=== PATIENT | female | born 1990 | race Caucasian/White ===

== ENCOUNTER 2017-09-27 11:32 | Outpatient (CLI) | payer BC, MEDICAID ==
--- NOTE | 2017-09-27 12:40 | Non Stress Test Report ---
Non Stress Test Datetime Report Generated by CPN: 09/27/2017 12:40 DEMOGRAPHIC EGA NST: 40.5 INDICATION Indication for Study: Ordered by Provider MONITORING Monitor Explained: Monitor Explained; Test Explained; Patient Verbalized Understanding Time on Monitor: 09/27/2017 11:46 Time off Monitor: 09/27/2017 12:11 NST Duration: 25 NST INTERVENTIONS NST Interventions: PO Hydration; Reposition Patient Physician Notified NST: H.Joseph, CNM BABY A: [id number] BABY A Movement : Present Contraction Frequency : None FHR Baseline : 125 Accelerations : 15X15 Decelerations : None Variability : Moderate 6-25bpm NST Review: Meets Criteria for Reactive NST NST Review and Verified By : JOY CRAWFORD Results: Reactive NST REPORT Report Trigger: Send Report
== END 2017-09-27 12:15 | disposition home or self-care (01) ==
LOC: LC 11:32
PROVIDERS: ATTEND Obstetrics & Gynecology
PROC: 4A1HXCZ Monitoring of Products of Conception, Cardiac Rate, External Approach (ICD-10-PCS; principal; 2017-09-27)
DX: O48.0 Post-term pregnancy (principal); Z3A.40 40 weeks gestation of pregnancy
CPT/HCPCS: 59025

== ENCOUNTER 2017-09-28 06:28 | Inpatient (IN) | payer BC, MEDICAID ==
[2017-09-28 07:09] LABS: APPEARANCE,URINE SLIGHTLY-CLOUDY; BILIRUBIN,URINE NEGATIVE (NEGATIVE); COLOR,URINE YELLOW; GLUCOSE, URINE NEGATIVE (NEGATIVE); KETONES,URINE NEGATIVE (NEGATIVE); LEUKOCYTE ESTERASE,URINE NEGATIVE (NEGATIVE); NITRITE,URINE NEGATIVE (NEGATIVE); PROTEIN,URINE NEGATIVE (NEGATIVE); URINE SPECIFIC GRAVITY 1.025; UROBILINOGEN,URINE NEGATIVE mg/dL (<2.0)
[2017-09-28 07:32] LABS: ABSOLUTE LYMPHOCYTES (AUTO) 2.2 10^3/uL (0.5-4.7); ABSOLUTE MONOCYTES (AUTO) 0.8 10^3/uL (0.1-1.4); ABSOLUTE NEUT (AUTO) 6.3 10^3/uL (1.7-8.2); BASOPHILS % (AUTO) 0.2 % (0-2); EOSINOPHILS % (AUTO) 0.4 % (0-6); HEMATOCRIT 34.5 % (36.0-47.0); HEMOGLOBIN 11.4 g/dL (12.0-15.5); LYMPHOCYTES % (AUTO) 23.3 % (13-45); MEAN CORPUSCULAR HGB CONC 33.1 g/dL (32.0-36.0); MEAN CORPUSCULAR VOLUME 88 fl (80-97); MONOCYTES % (AUTO) 8.3 % (3-13); PLATELET COUNT 156 10^3/uL (150-450); RED BLOOD COUNT 3.93 10^6/uL (3.72-5.28); RED CELL DISTRIBUTION WIDTH 13.9 % (11.5-14.0); SEGMENTED NEUTROPHILS % (AUTO) 67.8 % (42-78); TOTAL CELLS COUNTED % (AUTO) 100 %; WHITE BLOOD COUNT 9.2 10^3/uL (4.0-10.5)
[2017-09-28 07:32] LABS: URINE AMPHETAMINES SCREEN NEGATIVE; URINE BARBITURATES SCREEN NEGATIVE; URINE BENZODIAZEPINES SCREEN NEGATIVE; URINE COCAINE SCREEN NEGATIVE; URINE MARIJUANA (THC) SCREEN NEGATIVE; URINE METHADONE SCREEN NEGATIVE; URINE PHENCYCLIDINE SCREEN NEGATIVE
[2017-09-28] MEDS ORDERED: RINGERS SOLUTION,LACTATED 300 ML IV ONE (07:50)
[2017-09-28] MEDS ORDERED: OXYTOCIN/NORMAL SALINE 20 UNIT/1,000 ML RTUINJ IV PRN ×2 (07:50→12:27)
[2017-09-28] MEDS ORDERED: RINGERS SOLUTION,LACTATED 1,000 ML IV PRN (07:50)
[2017-09-28] MEDS ORDERED: LIDOCAINE 1% INJ-PF (10 MG/ML) 30 ML SDV ONE (08:05)
[2017-09-28] MEDS ORDERED: OXYTOCIN/NORMAL SALINE 20 UNIT/1,000 ML RTUINJ ONE (08:05)
[2017-09-28] MEDS ORDERED: MISOPROSTOL 0.2 MG TABLET ONE (08:05)
--- NOTE | 2017-09-28 09:47 | L&D Progress Notes ---
PROGRESS NOTES Datetime Report Generated by CPN: 09/28/2017 09:47 PROGRESS NOTE Impression: Reassuring Heart Rate Plan: Continue Present Management; Induction Vital Signs : Reviewed; Within Normal Limits Comment: Cat 1 strip, irregular uc's Plan: ROM, ROM FETUS A FHR - Baseline: 120 Monitoring: External US Variability: Moderate 6-25bpm Accelerations: 15X15 Decelerations: None FHR Category: Category I SIGNATURE SIGNATURE: [id number] SIGNATURE: [id number] Assignment: Albert Bryan MD Signature: with User ID: [email or web address] : with User ID: [email or web address]
--- NOTE | 2017-09-28 11:57 | L&D Progress Notes ---
PROGRESS NOTES Datetime Report Generated by CPN: 09/28/2017 11:57 PROGRESS NOTE Comment: feeling alot of pressure and pain, VE, floppy rim, 0, -1, variables, uc's q 2 1/2 FETUS A : 40.6 FETUS C SIGNATURE: [id number];[id number] Assignment: Albert Bryan MD Signature: with User ID: [email or web address] : with User ID: [email or web address]
[2017-09-28] MEDS ORDERED: ACETAMINOPHEN WITH CODEINE #3 TABLET PO PRN ×2 (12:27)
[2017-09-28] MEDS ORDERED: METHYLERGONOVINE MALEATE INJ/PF 0.2 MG/1 ML AMPULE IM PRN (12:27)
[2017-09-28] MEDS ORDERED: MEASLES,MUMPS&RUBELLA VACC/PF 0.5 ML VIAL SUBCUT PRN (12:27)
[2017-09-28] MEDS ORDERED: DIBUCAINE 1% OINTMENT 28 GM TP PRN (12:27)
[2017-09-28] MEDS ORDERED: DIPH/PERTUSS(ACELL)/TETANUS VAC/PF 0.5 ML SYR (>=10YO) IM PRN (12:27)
[2017-09-28] MEDS ORDERED: BENZOCAINE/MENTHOL AEROSOL SPRAY 56 ML TOP PRN (12:27)
[2017-09-28] MEDS ORDERED: ZOLPIDEM TARTRATE 5 MG TABLET PO PRN (12:27)
[2017-09-28] MEDS ORDERED: IBUPROFEN 800 MG TABLET ONE (12:45)
--- NOTE | 2017-09-28 13:03 | Delivery Summary ---
Del Sum A-C Datetime Report Generated by CPN: 09/28/2017 13:02 DELIVERY PERSONNEL DELIVERY PERSONNEL: [id number] Delivery Doctor:: Betty Enamorado CNM Nurse Radioisotope Technician Certified:: Betty Enamorado CNM Labor and Delivery Nurse:: Sandra Brock RNshook machine operator Nurse:: NORM Sosa Medical Front Desk Coordinator/WEAPONS ENGINEER: [facility] Additional Personnel: : Rosa Irizarry RN MATERNAL INFORMATION Delivery Anesthesia: None Medications After Delivery: Pitocin Bolus-Please Comment; Pitocin Drip 20 Units/1000ml NSS Meds After Delivery Comment: Pitocin 20 units in 1 L NS, bolusing per order Estimated Blood Loss (ml): 400 Maternal Complications: None Provider Comments: viable male from OA to [facility], after delivery of head, contraction was over, poor maternal effort, shoulder dystocia dx, Mc Garcia, Suprapubic pressure, call for help, no lateral traction, no fundal pressure, rt ant shoulder aneflexed and delivery of after 1 min 26 seconds . Placed on mothers abd, crying, family at BS moving all extremeties, facial bruising Spont delivery of grossly nl intact placenta, 2 VC, EBL 400cc, vaginal laceration repaired with 2-0 chromic without difficulty, bleeding controlled Cytotec 1000 mcg via rectum, Massage and Pitocin Both remain in recovery in stable condition LABOR SUMMARY EDC: 09/22/2017 00:00 No. Babies in Womb: 1 Attempted: No Labor Anesthesia: None LABOR INFORMATION Reason for Induction: Post Dates Reason for Induction- Other: GDM Onset of Labor: 09/28/2017 10:45 Complete Dilatation: 09/28/2017 11:58 Oxytocin: Induction Group B Beta Strep: negative Antibiotics # of Doses: 0 Steroids Given: None Reason Steroids Not Administered: Not Applicable MEMBRANES Membranes Rupture Method: Spontaneous Rupture of Membranes: 09/28/2017 10:46 Length of Rupture (hr): 1.30 Amniotic Fluid Color: Clear Amniotic Fluid Amount: Small Amniotic Fluid Odor: Normal STAGES OF LABOR Stage 1 hr: 1 Stage 1 min: 13 Stage 2 hr: 0 Stage 2 min: 6 Stage 3 hr: 0 Stage 3 min: 5 Total Time in Labor hr: 1 Total Time in Labor min: 24 VAGINAL DELIVERY Episiotomy: None Laceration #1: Vaginal Laceration Extension #1: Second Degree Laceration Repair: Yes Laceration Repair Note: 2-0 chromic for vaginal repair without difficulty using 1% Xylocaine Sponge Count Correct: N/A Sharps Count Correct: N/A CSECTION DELIVERY Primary Indication: N/A Secondary Indication: N/A CSection Incidence: N/A Labor: N/A Elective: N/A CSection Incision: N/A BABY A INFORMATION Delivery Date/Time: 09/28/2017 12:04 Method of Delivery: Vaginal Born in Route : No : N/A Forceps: N/A Vacuum Extraction: N/A Shoulder Dystocia : Yes SHOULDER DYSTOCIA BABY A Delivery of Head: 09/28/2017 12:03 Time Head to Delivery : 1.0 1st Intervention to Resolve: Gentle Attempt at Traction, Assisted by Maternal Expulsive Efforts 2nd Intervention to Resolve: McRobert's Maneuver 3rd Intervention to Resolve: Suprapubic Pressure Verify NO Fundal Pressure: No Fundal Pressure Applied Arm Under Symphisis at Del: Right PRESENTATION/POSITION BABY A Presentation: Cephalic Cephalic Presentation: Vertex Vertex Position: Right Occipital Anterior Breech Presentation: N/A PLACENTA INFORMATION BABY A Placenta Delivery Time : 09/28/2017 12:09 Placenta Method of Delivery: Spontaneous Placenta Status: Delivered SCORES BABY A Heart Rate 1 min: >100 bpm Resp Effort 1 min: Slow, Irregular Reflex Irritability 1 min: Cough or Sneeze or Pulls Away Muscle Tone 1 min: Active Motion Color 1 min: Blue/Pale Resuscitation Effort 1 min: Tactile Stimulation SCORE 1 MIN: 7 Heart Rate 5 min: >100 bpm Resp Effort 5 min: Good Cry Reflex Irritability 5 min: Cough or Sneeze or Pulls Away Muscle Tone 5 min: Active Motion Color 5 min: Body [place], Extremities Blue Resuscitation Effort 5 min: N/A SCORE 5 MIN: 9 Resuscitation Effort 10 min: N/A INFANT INFORMATION BABY A Gestational Age at Delivery: 40.6 Gestational Status: Full Term- 39- 40.6 Weeks Outcome : Liveborn Infant Condition : Stable Infant Sex: Male IDENTIFICATION BABY A Verification Date/Time: 09/28/2017 12:17 ID Band Number: [id number] Mother's Name Verified: Yes Infant RN Verifying Infant: Jose Angel Irizarry, RN / JKiko Neri, RN WEIGHT/LENGTH BABY A Birthweight (gm): 4210 Infant Weight (lb): 9 Infant Weight (oz): 5 Length (in): 18.50 Length (cm): 46.99 CORD INFORMATION BABY A No. Cord Vessels: 3 Nuchal Cord : Around Neck x1, Loose Cord Blood Taken: Yes-For Eval (Mom's Blood Type - or O+) Infant Suction: Mouth ASSESSMENT BABY A Infant Complications: Shoulder Dystocia Physical Findings at Delivery: Bruising Physical Findings- Other: facial bruising Respirations: Appears Normal Skin to Skin: Yes Skin to Skin Time (min): 45 Infant Care By: Sally Irizarry RN Transferred To: Remains with Mother BABY B INFORMATION : N/A
--- NOTE | 2017-09-28 14:26 | Admission Physical ---
Datetime Report Generated by CPN: 09/28/2017 14:26 CURRENT ADMISSION Indication for Induction: Post Dates; Maternal Diabetes Indication for Induction: Postterm, Intrauterine ; Intact Membranes; Induction of Labor Admit Plan: Admit to Unit; Initiate Labor Induction Protocol ALLERGIES Medication Allergies: No Medication Allergies: No Known Allergies (09/28/2017) Medication Allergies: No Known Allergies (09/27/2017) Medication Allergies: None Latex: No Latex Allergies Food Allergies: N/A Environmental Allergies: N/A OBSTETRICAL HISTORY EDC: 09/22/2017 00:00 : 2 Para: 1 Term: 1 : 0 SAB: 0 IAB: 0 Ectopic: 0 Livin Cesareans: 0 VBACs: 0 Multiple Births: 0 Gestational Diabetes: Yes Rh Sensitization: No Incompetent Cervix: No SOPHIA: No Infertility: No ART Treatment: No Uterine Anomaly: No IUGR: No Hx Previous C/S: No Macrosomia: No Hx Loss/Stillborn: No PIH: No Hx : No Placenta Previa/Abruption: No Depression/PP Depression: No PTL/PROM: No Post Hemorrhage: No Current Procedures: Ultrasound; NST Obstetrical History Comments: G1 - 2009, Girl, 39.6 weeks G2 - Current , GDM SEE RECORDS Alcohol: No Marijuana : No Cocaine: No Other Illicit Drugs: No Cigarettes: Former Smoker. [id number] MEDICAL HISTORY Diabetes: Yes Diabetes Type: Gestational Diabetes Blood Transfusion: No Pulmonary Disease (Asthma, TB): No Breast Disease: No Hypertension: No Managed Services Sales Consultant Surgery: No Heart Disease: No Hosp/Surgery: Yes Autoimmune Disorder: No Anesthetic Complications: No Kidney Disease: No Abnormal Pap Smear: No Neuro/Epilepsy: No Psychiatric Disorders: No Other Medical Diseases: No Hepatitis/Liver Disease: No Significant Family History: No Varicosities/Phlebitis: No Trauma/Violence : No Thyroid Dysfunction: No Medical History Comments: Childbirth 2009, GDM this INFECTIOUS HISTORY Gonorrhea: No Genital Herpes: No Chlamydia: No Tuberculosis: No Syphilis: No Hepatitis: No HIV/AIDS Exposure: No Rash or Viral Illness: No HPV: No PHYSICAL EXAM General: Normal HEENT: Deferred Neurologic: Normal Thyroid: Normal Heart: Normal Lungs: Normal Breast: Deferred Back: Normal Abdomen: Normal Genitourinary Exam: Normal Extremities: Normal DTRs: Normal Pelvic Type: Adequate Physical Exam Comments: GBS Neg, 40.6 GDM BS this am 77 FETUS A Monitoring: External US FHR- Baseline: 120 Variability: Moderate 6-25bpm Accelerations: 15X15 Decelerations: None FHR Category: Category I Admit Comment: Admitted to LD for IOL for GDM and post dates VE ? baby high and unable to find cervix,post Irreg uc's, explained to pt and hsb we will wait until head is down to 0 station to ROM, tolerating contractions well, does not want epidural unless needed PLANS FOR LABOR AND DELIVERY Labor and Delivery: None Pain Management: Natural Feeding Preference: Both Benefit of Breast Feed Discussed: Yes Circumcision: Yes INFORMED CONSENT Assignment: Albert Bryan MD Signature: with User ID: [email or web address] : with User ID: [email or web address]
[2017-09-28] MEDS: DOCUSATE SODIUM 100 MG CAPSULE PO SCH (17:52)
[2017-09-28] MEDS: FERROUS SULFATE 325 MG TABLET PO SCH (17:52)
[2017-09-28] MEDS: IBUPROFEN 800 MG TABLET PO SCH ×2 (18:13→21:04)
[2017-09-29] MEDS: IBUPROFEN 800 MG TABLET PO SCH ×3 (05:59→21:56)
[2017-09-29 07:33] LABS: HEMOGLOBIN 10.7 g/dL (12.0-15.5); MEAN CORPUSCULAR HEMOGLOBIN 29.4 pg (27.0-33.4); MEAN CORPUSCULAR HGB CONC 33.5 g/dL (32.0-36.0); MEAN CORPUSCULAR VOLUME 88 fl (80-97); PLATELET COUNT 141 10^3/uL (150-450); RED BLOOD COUNT 3.65 10^6/uL (3.72-5.28); RED CELL DISTRIBUTION WIDTH 14.6 % (11.5-14.0); WHITE BLOOD COUNT 10.4 10^3/uL (4.0-10.5)
[2017-09-29] MEDS: FERROUS SULFATE 325 MG TABLET PO SCH ×2 (10:00→19:16)
[2017-09-29] MEDS: SENNOSIDES/DOCUSATE 8.6-50 MG 1 EACH TABLET PO SCH (10:00)
[2017-09-29] MEDS: DOCUSATE SODIUM 100 MG CAPSULE PO SCH ×2 (10:00→19:15)
[2017-09-29] MEDS: PRENATAL VITAMIN W DHA CAPSULE PO SCH (10:00)
--- NOTE | 2017-09-29 12:15 | PDOC PROGRESS REPORT ---
Subjective-OB Progress Note for:: 09/29/17 Physical Exam (OB) Vital Signs: Temp Pulse Resp BP Pulse Ox 98.5 F 71 15 107/71 99 09/29/17 08:25 09/29/17 08:25 09/29/17 08:25 09/29/17 08:25 09/29/17 08:25 Intake & Output 09/28/17 09/29/17 09/30/17 06:59 06:59 06:59 Weight 100.1 kg - Abdomen Description: Soft Hernia Present: No Fundal Description: Firm, Midline Fundal Height: u/u - u/2 - Abdominal Tenderness: Nontender - Extremities Lower extremities: Guillermina's sign - neg Calf: Normal, Nontender Objective-Diagnostic Laboratory: 09/29/17 07:13 09/29/17 09/29/17 07:13 07:13 WBC 10.4 RBC 3.65 L Hgb 10.7 L Hct 32.0 L MCV 88 MCH 29.4 MCHC 33.5 RDW 14.6 H Plt Count 141 L Blood Type O NEGATIVE Assessment and Plan(PN) - Assessment and Plan (1) Vaginal delivery Is this a current diagnosis for this admission?: Yes - Time Spent with Patient Time with patient: Less than 15 minutes - Disposition Anticipated Discharge: Home Within: within 24 hours
[2017-09-30] MEDS: IBUPROFEN 800 MG TABLET PO SCH (05:33)
[2017-09-30] MEDS: PRENATAL VITAMIN W DHA CAPSULE PO SCH (10:39)
[2017-09-30] MEDS: FERROUS SULFATE 325 MG TABLET PO SCH (10:39)
[2017-09-30] MEDS: DOCUSATE SODIUM 100 MG CAPSULE PO SCH (10:39)
[2017-09-30] MEDS: SENNOSIDES/DOCUSATE 8.6-50 MG 1 EACH TABLET PO SCH (10:39)
[2017-09-30 11:14] VITALS: BP 98/57
--- NOTE | 2017-09-30 11:52 | PDOC PROGRESS REPORT ---
Subjective-OB Progress Note for:: 09/30/17 Subjective: Ready for discharge. Physical Exam (OB) Vital Signs: Temp Pulse Resp BP Pulse Ox 97.7 F 73 15 98/57 L 99 09/30/17 11:06 09/30/17 11:06 09/30/17 11:06 09/30/17 11:06 09/30/17 11:06 Intake & Output 09/29/17 09/30/17 10/01/17 06:59 06:59 06:59 Intake Total 350 300 Balance 350 300 - PIH/Pre-Eclampsia DTR's: 2 + Clonus: Negative Headache: Absent Epigastric Pain: No Visual Changes: No - Lochia Lochia Amount: Scant < 10 ml Lochia Color: Rubra/Red - Abdomen Description: Soft, Flat Hernia Present: No Bowel Sounds: Normoactive Flatus Presence: Present Stool: No Fundal Description: Firm, Midline Fundal Height: u/u - u/2 Objective-Diagnostic Laboratory: 09/29/17 07:13 09/29/17 07:13 Blood Type O NEGATIVE Assessment and Plan(PN) - Disposition Anticipated Discharge: Home
--- NOTE | 2017-09-30 12:02 | PDOC DISCHARGE SUMMARY ---
Final Diagnosis Discharge Date: 09/30/17 - Final Diagnosis (1) GDM (gestational diabetes mellitus) Is this a current diagnosis for this admission?: Yes (2) Obesity Is this a current diagnosis for this admission?: Yes (3) Is this a current diagnosis for this admission?: Yes (4) Vaginal delivery Is this a current diagnosis for this admission?: Yes Discharge Data - Discharge Medication Home Medications: No122/Iron/Folic Acid [ Multi Tablet] 1 each PO DAILY 09/27/17 Gestational Age: 40.6 wks Reason(s) for Admission: Induction of Labor, Gestional Diabetes Procedures: Ultrasound Intrapartum Procedure(s): Spontaneous Vaginal Delivery Complication(s): Laceration-Vaginal Laceration-Degree: 2nd - [place] Data Baby 1 Male at 1 minute: 7 at 5 minutes: 9 Weight: 4.224 kg Home with Mother: Yes Complications: Yes - Shoulder dystocia - Diagnosis Test Laboratory: Temp Pulse Resp BP Pulse Ox 97.7 F 73 15 98/57 L 99 09/30/17 11:06 09/30/17 11:06 09/30/17 11:06 09/30/17 11:06 09/30/17 11:06 09/28/17 09/28/17 09/29/17 06:40 07:02 07:13 RBC 3.93 3.65 L Hgb 11.4 L 10.7 L Hct 34.5 L 32.0 L Urine Opiates Screen NEGATIVE - Discharge information/Instructions Discharge Activity: Activity As Tolerated, Balance Activity w/Rest, Pelvic Rest , Slowly Increase Activity, No tub bath Discharge Diet: Regular Disposition: HOME, SELF-CARE Follow [facility]: [facility] in: 4, Weeks
== END 2017-09-30 13:00 | disposition home or self-care (01) | DRG 775 ==
LOC: LR 06:28 → 2S 14:24
PROVIDERS: ADMIT Obstetrics & Gynecology; ATTEND Obstetrics & Gynecology
PROC: 10E0XZZ Delivery of Products of Conception, External Approach (ICD-10-PCS; principal; 2017-09-28)
PROC: 0KQM0ZZ Repair Perineum Muscle, Open Approach (ICD-10-PCS; 2017-09-28)
PROC: 4A1HXCZ Monitoring of Products of Conception, Cardiac Rate, External Approach (ICD-10-PCS; 2017-09-28)
PROC: 3E0234Z Introduction of Serum, Toxoid and Vaccine into Muscle, Percutaneous Approach (ICD-10-PCS; 2017-09-29)
DX: O70.1 Second degree perineal laceration during delivery (principal); O48.0 Post-term pregnancy; O66.0 Obstructed labor due to shoulder dystocia; O26.893 Other specified pregnancy related conditions, third trimester; O69.81X0 Labor and delivery complicated by cord around neck, without compression, not applicable or unspecified; Z67.41 Type O blood, Rh negative; O24.429 Gestational diabetes mellitus in childbirth, unspecified control; Z68.37 Body mass index [BMI] 37.0-37.9, adult; Z87.891 Personal history of nicotine dependence; Z3A.40 40 weeks gestation of pregnancy; Z37.0 Single live birth
CPT/HCPCS: 36415; 80307; 81005; 82962; 85025; 85027; 85461; 86592; 86850; 86900; 86901; J2590; J2790; J3490